=== PATIENT | female | born 1950 | race Caucasian/White ===

== ENCOUNTER 2016-12-26 13:37 | Outpatient (CLI) | payer BC | END 2016-12-26 13:38 | disposition home or self-care (01) | DX: Z12.31 Encounter for screening mammogram for malignant neoplasm of breast (principal) ==

== ENCOUNTER 2017-01-04 09:45 | Outpatient (CLI) | payer BC | END 2017-01-04 09:46 | DX: E03.9 Hypothyroidism, unspecified (principal); Z51.81 Encounter for therapeutic drug level monitoring; E78.5 Hyperlipidemia, unspecified; E55.9 Vitamin D deficiency, unspecified ==

== ENCOUNTER 2017-05-23 13:48 | Outpatient (CLI) | payer BC ==
--- NOTE | 2017-05-23 17:45 | XRAY Report ---
ONE-VIEW PELVIS, ONE-VIEW RIGHT HIP: 05/23/2017 HISTORY: Hip joint pain. FINDINGS: The osseous structures are mildly demineralized. Symmetric degenerative changes are noted about both hips with early axial migration of the femoral he ad relative to the acetabula. Trace subchondral sclerosis is incidental. There is no fracture or focus of destruction. The SI joint spaces are preserved and the sacral ala are intact. There are no changes to suggest avascular necrosis. IMPRESSION: SYMMETRIC DEGENERATIVE CHANGES ABOUT BOTH HIPS. NO ACUTE PROCESS. JOB #: [id number] EXT JOB #:[id number]
== END 2017-05-23 13:49 | disposition home or self-care (01) ==
LOC: DI.S 13:48
PROVIDERS: ATTEND Physician Assistant Medical
DX: M16.0 Bilateral primary osteoarthritis of hip (principal)

== ENCOUNTER 2017-10-14 21:05 | Emergency (ER) | payer MEDICARE, OTHER ==
[2017-10-14 21:31] LABS: BASOPHILS # (AUTO) 0.1 10^3/uL (0.0-0.1); BASOPHILS % (AUTO) 0.8 %; EOSINOPHILS # (AUTO) 0.6 10^3/uL (0.0-0.7); EOSINOPHILS % (AUTO) 6.2 %; HGB - HEMOGLOBIN 14.1 g/dL (12.0-16.0); LYMPHOCYTES # (AUTO) 4.6 10^3/uL (1.5-3.5); LYMPHOCYTES % (AUTO) 49.1 %; MEAN CORPUSCULAR HEMOGLOBIN 28.1 pg (27.0-31.0); MEAN CORPUSCULAR HGB CONC 33.1 g/dL (32.0-36.0); MEAN CORPUSCULAR VOLUME 85.1 fL (81.0-99.0); MEAN PLATELET VOLUME 7.6 fL (7.9-10.8); MONOCYTES # (AUTO) 0.9 10^3/uL (0.0-1.0); MONOCYTES % (AUTO) 9.6 %; NEUTROPHILS # (AUTO) 3.2 10^3/uL (1.5-6.6); NEUTROPHILS % (AUTO) 34.3 %; PLT - PLATELET COUNT 341 10^3/uL (130-450); RED BLOOD COUNT 5.03 10^6/uL (4.20-5.40); WHITE BLOOD COUNT 9.5 x10^3/uL (4.8-10.8)
--- NOTE | 2017-10-14 21:38 | ED Physician Documentation ---
PD HPI CHEST PAIN - Stated complaint Stated Complaint: CHEST PX - Chief complaint Chief Complaint: Cardiac - History obtained from History obtained from: Patient, Family - History of Present Illness Timing - onset: Today Timing - details: Gradual onset, Now resolved Quality: Pressure Similar symptoms before: No diagnosis, Has not had sx before Recently seen: Not recently seen - Additional information Additional information: Patient is a 67 year old female with no significant past medical history who is presenting to the emergency department for high blood pressure and a twinge in her chest. patient states that earlier today she checked her bp and it was about 140/90. patient states later in the afternoon she checked it again and systolic was 190s and patient felt a slight twinge in chest so she decided to come in and get checked out. Patient denies any family history of blood clots or cardiac disease. Review of Systems Constitutional: denies: Fever, Chills Eyes: denies: Decreased vision Ears: denies: Ear pain Nose: reports: Reviewed and negative Throat: reports: Reviewed and negative Cardiac: reports: Chest pain / pressure. 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 - Present Medications Home Medications: Ambulatory Orders Medication Instructions Recorded Confirmed Levothyroxine [Synthroid] 50 mcg PO DAILY 10/14/17 10/14/17 Simvastatin 1 tab PO DAILY 10/14/17 10/14/17 - Allergies Allergies/Adverse Reactions: Allergies Allergy/AdvReac Type Severity Reaction Status Date / Time No Known Drug Allergies Allergy Verified 10/14/17 21:13 - Social History Does the pt smoke?: No Smoking Status: Never smoker Does the pt drink ETOH?: Yes Does the pt have substance abuse?: No PD ED PE NORMAL - Vitals Vital signs reviewed: Yes - General General: Alert and oriented X 3, No acute distress, Well developed/nourished - HEENT HEENT: Atraumatic, PERRL, Pharynx benign - Neck Neck: Supple, no meningeal sign, No JVD - Cardiac Cardiac: RRR, No murmur, No rub - Respiratory Respiratory: No respiratory distress, Clear bilaterally - Abdomen Abdomen: Soft, Non tender, Non distended - Derm Derm: Normal color, Warm and dry, No rash - Extremities Extremities: No deformity, No tenderness to palpate - Neuro Neuro: Alert and oriented X 3, No motor deficit, No sensory deficit, Normal speech Eye Opening: Spontaneous Motor: Obeys Commands Verbal: Oriented GCS Score: 15 Results - Vitals Vitals: Vital Signs - 24 hr 10/14/17 10/14/17 10/14/17 21:08 21:29 22:01 Temperature 36.9 C Heart Rate 101 H 76 85 Respiratory 18 16 16 Rate Blood Pressure 196/93 H 186/78 H 168/79 H O2 Saturation 99 98 98 Oxygen O2 Source Room air - EKG (time done) 2118 Rate: Rate (enter#) (83) Rhythm: NSR [place]: Normal Intervals: Normal MD QRS: Poor R wave progression Ischemia: Normal ST segments Compare to prior EKG: Old EKG unavailable - Labs Labs: Laboratory Tests 10/14/17 10/14/17 10/14/17 21:25 21:25 21:25 WBC 9.5 RBC 5.03 Hgb 14.1 Hct 42.8 MCV 85.1 MCH 28.1 MCHC 33.1 RDW 13.0 Plt Count 341 MPV 7.6 L Neut # 3.2 Lymph # 4.6 H [place] # 0.9 Eos # 0.6 Baso # 0.1 Absolute Nucleated RBC 0.00 Nucleated RBC % 0.0 Sodium 142 Potassium 3.1 L Chloride 103 Carbon Dioxide 27 Anion Gap 12.0 BUN 18 Creatinine 0.9 Estimated GFR (MDRD) 63 L Glucose 127 H Calcium 9.4 Total Bilirubin 0.2 AST 24 ALT 21 Alkaline Phosphatase 82 Troponin I < 0.04 B-Natriuretic Peptide Total Protein 7.8 Albumin 4.6 Globulin 3.2 Albumin/Globulin Ratio 1.4 Lipase 41 10/14/17 21:25 WBC RBC Hgb Hct MCV MCH MCHC RDW Plt Count MPV Neut # Lymph # [place] # Eos # Baso # Absolute Nucleated RBC Nucleated RBC % Sodium Potassium Chloride Carbon Dioxide Anion Gap BUN Creatinine Estimated GFR (MDRD) Glucose Calcium Total Bilirubin AST ALT Alkaline Phosphatase Troponin I B-Natriuretic Peptide 33 Total Protein Albumin Globulin Albumin/Globulin Ratio Lipase - Rads (name of study) chest x-ray Radiology: EMP read indepedently (no acute disease process) PD MEDICAL DECISION MAKING - ED course Complexity details: reviewed old records, reviewed results, re-evaluated patient , considered differential, d/w patient, d/w family ED course: Patient was seen and examined at bedside. ekg was performed and within normal limits. IV access was gained and labs were drawn. chest x-ray was within normal limits. patient's blood pressure was slightly elevated but family stated that they were under a lot of stress lately. Patient's heart score was 2 , and perc score was 0. Patient was appropriate for discharge with outpatient follow up. Departure - Departure Disposition: Home, Self Care Clinical Impression: Hypertension Condition: Good Instructions: ED Hypertension New Begin Tx Follow-Up: Becky Enriquez PA-C [Primary Care Provider] - Within 3 Days Comments: Your diagnostics today were within normal limits. There was no major abnormality on your ekg, exray or blood work. That being said this is only a snapshot in time and you should still follow up with your doctor on monday to schedule and echocardiogram and stress test. Your blood pressure was high today and you should continue to check it twice a day for the next few days and follow up with your doctor on monday for re-evaluation. You may return to the emergency department at any time for new, worsening or uncontrollable symptoms
[2017-10-14 21:46] LABS: ALBUMIN 4.6 g/dL (3.2-5.5); ALBUMIN/GLOBULIN RATIO 1.4 (1.0-2.2); BILIRUBIN,TOTAL 0.2 mg/dL (0.2-1.0); CALCIUM 9.4 mg/dL (8.5-10.3); CREATININE 0.9 mg/dL (0.4-1.0); TOTAL PROTEIN 7.8 g/dL (6.7-8.2)
--- NOTE | 2017-10-14 21:50 | XRAY Report ---
EXAM: CHEST RADIOGRAPHY EXAM DATE: 10/14/2017 09:28 PM. CLINICAL HISTORY: Chest pain. COMPARISON: None. TECHNIQUE: 2 views. FINDINGS: Lungs/Pleura: No focal opacities evident. No pleural effusion. No pneumothorax. Normal volumes. Mediastinum: Heart and mediastinal contours are unremarkable. Other: None. IMPRESSION: No acute intrathoracic plain film abnormality. [facility] Referring Provider Line: [phone] SITE ID: [id number]
[2017-10-14] MEDS ORDERED: POTASSIUM CHLORIDE 20 MEQ TABLET PO STA (21:52)
[2017-10-14 22:02] VITALS: BP 168/79
== END 2017-10-14 22:32 | disposition home or self-care (01) ==
LOC: ED 21:05
DX: I10 Essential (primary) hypertension (principal); E03.9 Hypothyroidism, unspecified
CPT/HCPCS: 36415; 71046; 80053; 83690; 83880; 84484; 85025; 93005; 99283; 99285; A9270

== ENCOUNTER 2017-10-31 09:02 | Outpatient (CLI) | payer MEDICARE, OTHER | END 2017-10-31 09:03 | disposition home or self-care (01) | LOC: DI 09:02 | PROVIDERS: ATTEND Nurse Practitioner Family | DX: R07.89 Other chest pain (principal) | CPT/HCPCS: 93306 ==

== ENCOUNTER 2018-01-05 09:58 | Outpatient (CLI) | payer MEDICARE, OTHER ==
[2018-01-05 18:36] LABS: THYROID STIMULATING HORMONE 0.85 uIU/mL (0.34-5.60)
[2018-01-05 18:38] LABS: FREE T4 (FREE THYROXINE) 0.8 ng/dL (0.58-1.64)
== END 2018-01-05 09:59 | disposition home or self-care (01) ==
LOC: LAB.F 09:58
PROVIDERS: ATTEND Nurse Practitioner Family
DX: E03.9 Hypothyroidism, unspecified (principal)
CPT/HCPCS: 36415; 84439; 84443

== ENCOUNTER 2018-01-17 10:31 | Outpatient (CLI) | payer MEDICARE, OTHER ==
--- NOTE | 2018-01-18 12:52 | Mammography Report ---
DIGITAL SCREENING MAMMOGRAM: 01/17/2018 CLINICAL INDICATION: A 67-year-old with history of late childbearing for screening. COMPARISON: 12/2016, 12/2015, 02/2015, 01/2014, 01/2013, 01/2012, 12/2010, 10/2009. TECHNIQUE: Routine CC and MLO projections were obtained of the breasts. FINDINGS: The breasts again demonstrate heterogeneously dense fibroglandular parenchyma bilaterally. Coarse and punctate, typically benign calcifications are present. No suspicious masses, clustered microcalcifications, or regions of architectural distortion are identified. IMPRESSION: BENIGN FINDINGS. RECOMMENDATION: Routine annual screening unless otherwise clinically indicated. BIRADS CATEGORY 2 - BENIGN FINDINGS. STANDARD QUALIFYING STATEMENTS: 1. This examination was reviewed with the aid of Computer-Aided Detection (CAD). 2. A negative or benign imaging report should not delay biopsy if clinically suspicious findings are present. Consider surgical consultation if warranted. More than 5% of cancers are not identified by imaging. 3. Dense breasts may obscure an underlying neoplasm. TD: 01/18/2018 12:51
== END 2018-01-17 10:32 | disposition home or self-care (01) ==
LOC: DI 10:31
PROVIDERS: ATTEND Nurse Practitioner Family
DX: Z12.31 Encounter for screening mammogram for malignant neoplasm of breast (principal)
CPT/HCPCS: 77067

== ENCOUNTER 2018-11-07 09:23 | Outpatient (CLI) | payer MEDICARE, OTHER ==
[2018-11-07 17:45] LABS: BASOPHILS % (AUTO) 0.4 %; EOSINOPHILS # (AUTO) 0.4 10^3/uL (0.0-0.7); EOSINOPHILS % (AUTO) 5.4 %; LYMPHOCYTES # (AUTO) 2.6 10^3/uL (1.5-3.5); LYMPHOCYTES % (AUTO) 38.8 %; MEAN CORPUSCULAR HEMOGLOBIN 28.8 pg (27.0-31.0); MEAN CORPUSCULAR HGB CONC 32.4 g/dL (32.0-36.0); MEAN CORPUSCULAR VOLUME 88.7 fL (81.0-99.0); MEAN PLATELET VOLUME 9.2 fL (7.9-10.8); MONOCYTES # (AUTO) 0.6 10^3/uL (0.0-1.0); MONOCYTES % (AUTO) 8.4 %; NEUTROPHILS # (AUTO) 3.1 10^3/uL (1.5-6.6); PLT - PLATELET COUNT 322 10^3/uL (130-450); RED BLOOD COUNT 4.88 10^6/uL (4.20-5.40); RED CELL DISTRIBUTION WIDTH 13.7 % (12.0-15.0); WHITE BLOOD COUNT 6.6 x10^3/uL (4.8-10.8)
[2018-11-07 18:15] LABS: ALBUMIN 4.7 g/dL (3.2-5.5); ALBUMIN/GLOBULIN RATIO 1.5 (1.0-2.2); ALKALINE PHOSPHATASE 83 IU/L (42-121); ALT ALANINE AMINOTRANSFERASE 18 IU/L (10-60); AST ASPARTATE AMINOTRANSFERASE 24 IU/L (10-42); BILIRUBIN,TOTAL 0.7 mg/dL (0.2-1.0); BUN - BLOOD UREA NITROGEN 15 mg/dL (6-20); CALCIUM 9.3 mg/dL (8.5-10.3); CARBON DIOXIDE - CO2 27 mmol/L (21-32); CHLORIDE 98 mmol/L (101-111); CHOLESTEROL 172 mg/dL; CREATININE 0.8 mg/dL (0.4-1.0); GFR - MDRD 72 (>89); GLUCOSE 89 mg/dL (70-100); HDL CHOLESTEROL 58 mg/dL; LDL CHOLESTEROL,CALCULATED 94 mg/dL; LDL/HDL RATIO 1.6 (<4.4); SODIUM 137 mmol/L (135-145); TOTAL PROTEIN 7.9 g/dL (6.7-8.2); VLDL CHOLESTEROL 20 mg/dL
== END 2018-11-07 09:24 | disposition home or self-care (01) ==
LOC: LAB.F 09:23
PROVIDERS: ATTEND Nurse Practitioner Family
DX: I10 Essential (primary) hypertension (principal); E03.9 Hypothyroidism, unspecified
CPT/HCPCS: 36415; 80053; 80061; 83721; 84443; 85025

== ENCOUNTER 2019-01-15 08:11 | Emergency (ER) | payer MEDICARE, OTHER ==
--- NOTE | 2019-01-15 08:29 | ED Physician Documentation ---
PD HPI ABD PAIN - Stated complaint Stated Complaint: ABD PX/FEVER - History obtained from History obtained from: Patient - History of Present Illness Timing - onset: Yesterday (last evening) Timing - duration: Hours (15) Timing - details: Gradual onset, Still present, Now resolved (increased into today) Quality: Cramping, Aching, Pain Location: Suprapubic, LLQ Radiation: Lower back. No: Left flank Improved by: No: Eating, Laying still Worsened by: Moving, Palpation. No: Eating Associated symptoms: Nausea. No: Fever, Vomiting, Diarrhea, Constipation, Dysuria Similar symptoms before: Has not had sx before Recently seen: Not recently seen Review of Systems Constitutional: denies: Fever, Chills, Myalgias Nose: denies: Rhinorrhea / runny nose, Congestion Throat: denies: Sore throat Cardiac: denies: Chest pain / pressure Respiratory: denies: Cough GI: reports: Abdominal Pain, Nausea. 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 - Present Medications Home Medications: Ambulatory Orders Medication Instructions Recorded Confirmed Levothyroxine [Synthroid] 20 mcg PO DAILY 10/14/17 01/15/19 Simvastatin 1 tab PO DAILY 10/14/17 01/15/19 Hydrocodone/Acetaminophen [Amalia 1 each PO Q6H PRN #15 tablet 01/15/19 5-325 Tablet] Lisinopril [Zestril] 7.5 mg PO DAILY 01/15/19 01/15/19 Metronidazole [Flagyl] 500 mg PO BID #20 tablet 01/15/19 Ondansetron Odt [Zofran] 4 mg TL Q6H PRN #15 tablet 01/15/19 Sulfamethox/Trimeth 800/160 1 each PO BID #20 tablet 01/15/19 [Bactrim Ds 800/160] - Allergies Allergies/Adverse Reactions: Allergies Allergy/AdvReac Type Severity Reaction Status Date / Time No Known Drug Allergies Allergy Verified 01/15/19 08:31 - Social History Does the pt smoke?: No Smoking Status: Never smoker Does the pt drink ETOH?: Yes Does the pt have substance abuse?: No PD ED PE NORMAL - Vitals Vital signs reviewed: Yes - General General: Alert and oriented X 3, Well developed/nourished, Other (appears uncomfortable, with pain lower left abd. ) - HEENT HEENT: Pharynx benign - Neck Neck: Supple, no meningeal sign, No adenopathy - Cardiac Cardiac: No murmur. No: RRR (regular but tachycardic) - Respiratory Respiratory: Clear bilaterally - Abdomen Abdomen: Soft, Non distended - Female Female : Deferred - Rectal Rectal: Deferred - Back Back: No CVA TTP - Derm Derm: Normal color, Warm and dry - Extremities Extremities: Normal ROM s pain, No edema, No calf tenderness / cord - Neuro Neuro: Alert and oriented X 3, No motor deficit, Normal speech Results - Vitals Vitals: Vital Signs - 24 hr 01/15/19 01/15/19 01/15/19 11:49 12:27 12:43 Temperature 36.8 C Heart Rate 92 91 98 Respiratory 18 19 20 Rate Blood Pressure 131/67 H 130/71 121/77 O2 Saturation 100 100 100 Oxygen O2 Source Room air - Labs Labs: Laboratory Tests 01/15/19 01/15/19 01/15/19 09:05 09:05 09:05 WBC 15.1 H RBC 4.76 Hgb 13.6 Hct 40.6 MCV 85.4 MCH 28.7 MCHC 33.6 RDW 13.4 Plt Count 268 MPV 8.6 Neut # (Auto) 11.2 H Lymph # (Auto) 2.4 [place] # (Auto) 1.3 H Eos # (Auto) 0.1 Baso # (Auto) 0.1 Absolute Nucleated RBC 0.00 Nucleated RBC % 0.0 Sodium 138 Potassium 4.1 Chloride 102 Carbon Dioxide 25 Anion Gap 11.0 BUN 10 Creatinine 0.8 Estimated GFR (MDRD) 72 L Glucose 112 H Calcium 9.1 Total Bilirubin 1.0 AST 27 ALT 15 Alkaline Phosphatase 92 Total Protein 7.9 Albumin 4.5 Globulin 3.4 Albumin/Globulin Ratio 1.3 Lipase 30 Urine Color YELLOW Urine Clarity CLEAR Urine pH 5.5 Ur Specific [place] <=1.005 Urine Protein NEGATIVE Urine Glucose (UA) NEGATIVE Urine Ketones NEGATIVE Urine Occult Blood SMALL H Urine Nitrite NEGATIVE Urine Bilirubin NEGATIVE Urine Urobilinogen 0.2 (NORMAL) Ur Leukocyte Esterase NEGATIVE Urine RBC 0-5 Urine WBC 0-3 Ur Squamous Epith Cells RARE Squamous Urine Bacteria Rare Ur Microscopic Review INDICATED Urine Culture Comments NOT INDICATED - Rads (name of study) abd?pelvic CT Radiology: Prelim report reviewed (acute uncomplicated diverticulitis), EMP read contemporaneously, See rad report PD MEDICAL DECISION MAKING - ED course Complexity details: reviewed results, re-evaluated patient (She is improved with IV fluids and medicines here. She is churn tender in the left lower quadrant. She is able to drink sips of water. We discussed treatment regimen of anti- inflammatories, antibiotics, pain medicine and antiemetics. She asks about treatment at home versus in the hospital. I offered to call the hospitalist about staying overnight. Her preference is to go home and she has uncomplicated diverticulitis by exam and improvement in her symptoms reasonably well with medicines here. She is given initial IV antibiotics. Shared decision is for her to try home treatment with cautions to return if worsening and to return or recheck if not well improved in the next couple of days.), considered differential, d/w patient Departure - Departure Disposition: Home, Self Care Clinical Impression: Acute diverticulitis Condition: Stable Record reviewed to determine appropriate education?: Yes Instructions: ED Diverticulitis Follow-Up: Cindy Koehler ARNP [Primary Care Provider] - Prescriptions: Hydrocodone/Acetaminophen [Amalia 5-325 Tablet] 1 each PO Q6H PRN #15 tablet PRN Reason: Pain Metronidazole [Flagyl] 500 mg PO BID #20 tablet Ondansetron Odt [Zofran] 4 mg TL Q6H PRN #15 tablet PRN Reason: Nausea / Vomiting Sulfamethox/Trimeth 800/160 [Bactrim Ds 800/160] 1 each PO BID #20 tablet Comments: Stay well-hydrated today. Simple foods. Use the antibiotics Bactrim and Flagyl twice daily for 10 days. You can use an anti-inflammatory such as Aleve twice daily as well. Add ondansetron if needed for nausea and Tylenol or hydrocodone if needed for pain. Recheck if not improved well over the next 2-3 days. Light activity today and progress as able. Discharge Date/Time: 01/15/19 12:43
[2019-01-15] MEDS ORDERED: ONDANSETRON 4 MG/2 ML VIAL IVP STA (08:46)
[2019-01-15] MEDS ORDERED: MORPHINE 10 MG/ML VIAL IVP STA (08:46)
[2019-01-15] MEDS ORDERED: SODIUM CHLORIDE 0.9% 1,000 ML IV ONE (08:46)
[2019-01-15] MEDS ORDERED: IOVERSOL 320 100 ML VIAL IVP ONE ×2 (09:02→11:18)
[2019-01-15 09:17] LABS: BASOPHILS # (AUTO) 0.1 10^3/uL (0.0-0.1); BASOPHILS % (AUTO) 0.8 %; EOSINOPHILS # (AUTO) 0.1 10^3/uL (0.0-0.7); EOSINOPHILS % (AUTO) 0.5 %; HGB - HEMOGLOBIN 13.6 g/dL (12.0-16.0); LYMPHOCYTES # (AUTO) 2.4 10^3/uL (1.5-3.5); LYMPHOCYTES % (AUTO) 15.9 %; MEAN CORPUSCULAR HEMOGLOBIN 28.7 pg (27.0-31.0); MEAN CORPUSCULAR HGB CONC 33.6 g/dL (32.0-36.0); MEAN CORPUSCULAR VOLUME 85.4 fL (81.0-99.0); MEAN PLATELET VOLUME 8.6 fL (7.9-10.8); MONOCYTES # (AUTO) 1.3 10^3/uL (0.0-1.0); MONOCYTES % (AUTO) 8.6 %; NEUTROPHILS # (AUTO) 11.2 10^3/uL (1.5-6.6); NEUTROPHILS % (AUTO) 74.2 %; PLT - PLATELET COUNT 268 10^3/uL (130-450); RED BLOOD COUNT 4.76 10^6/uL (4.20-5.40); RED CELL DISTRIBUTION WIDTH 13.4 % (12.0-15.0); WHITE BLOOD COUNT 15.1 x10^3/uL (4.8-10.8)
[2019-01-15 09:19] LABS: BILIRUBIN,URINE NEGATIVE (NEGATIVE); GLUCOSE, URINE (UA) NEGATIVE (NEGATIVE); KETONES,URINE (UA) NEGATIVE (NEGATIVE); LEUKOCYTE ESTERASE, URINE NEGATIVE (NEGATIVE); NITRITE,URINE NEGATIVE (NEGATIVE); OCCULT BLOOD,URINE SMALL (NEGATIVE); PH,URINE 5.5 PH (5.0-7.5); PROTEIN,URINE NEGATIVE (NEGATIVE); UROBILINOGEN,URINE 0.2 (NORMAL) E.U./dL (NORMAL)
[2019-01-15 09:20] LABS: CLARITY,URINE CLEAR (CLEAR)
[2019-01-15 09:30] LABS: ALBUMIN 4.5 g/dL (3.2-5.5); ALBUMIN/GLOBULIN RATIO 1.3 (1.0-2.2); BACTERIA,URINE Rare /HPF (None Seen); CALCIUM 9.1 mg/dL (8.5-10.3); CREATININE 0.8 mg/dL (0.4-1.0); RBC,URINE 0-5 /HPF (0-5); SQUAMOUS EPITHELIAL CELL,UR RARE Squamous (<= Few); TOTAL PROTEIN 7.9 g/dL (6.7-8.2)
[2019-01-15] MEDS ORDERED: cefTRIAXone 1 GM VIAL IVP STA (10:33)
[2019-01-15] MEDS ORDERED: metroNIDAZOLE 500 MG/100 ML 500 MG/100 ML BAG IV ONE (10:33)
--- NOTE | 2019-01-15 10:42 | CT Report ---
Reason: lower abd pain since yesterday Procedure Date: 01/15/2019 Accession Number: [id number] / [id number] Procedure: CT - Abdomen/Pelvis W CPT Code: FULL RESULT: EXAM: CT ABDOMEN AND PELVIS EXAM DATE: 01/15/2019 10:25 AM. CLINICAL HISTORY: Lower abdominal pain since yesterday. COMPARISONS: None. TECHNIQUE: Routine helical CT imaging was performed through the abdomen and pelvis. IV contrast: Isovue 300 100 mL. Enteric contrast: No. Reconstructions: Coronal and sagittal. In accordance with CT protocol optimization, one or more of the following dose reduction techniques were utilized for this exam: automated exposure control, adjustment of mA and/or KV based on patient size, or use of iterative reconstructive technique. FINDINGS: Lung Bases: Unremarkable. Liver: A hypodense segment 3/4b lesion anteriorly measures 1.6 cm and is not characterized. Gallbladder/Bile Ducts: Unremarkable. Spleen: Normal. Pancreas: Normal. Adrenal Glands: Normal. Kidneys: Normal. No masses or hydronephrosis. Peritoneal Cavity/Bowel: No bowel obstruction. No free air. No mass or lymphadenopathy is detected. The appendix is well visualized and normal. Pelvic Organs: Bladder is markedly distended with no other abnormal features detected. A small amount of free fluid is seen within the pelvis. There is diverticulosis within the sigmoid colon which is surrounded by fat stranding and there is focal bowel wall thickening, uncomplicated diverticulitis. Vasculature: Atherosclerotic disease without aneurysm. Bones: No significant abnormality. Other: None. IMPRESSION: Uncomplicated diverticulitis. [facility] The call report notification system was initiated by Dr. Rashad Mairo at 10:41 AM on 01/15/2019. The above call report findings were discussed with Donald Hamilton by Dr. Rashad Mario at 10:48 AM on 01/15/2019.
[2019-01-15] MEDS ORDERED: KETOROLAC 30 MG/ML VIAL IVP STA (12:18)
[2019-01-15 12:44] VITALS: BP 121/77
== END 2019-01-15 12:43 | disposition home or self-care (01) ==
LOC: ED 08:11
DX: K57.92 Diverticulitis of intestine, part unspecified, without perforation or abscess without bleeding (principal); I10 Essential (primary) hypertension; E03.9 Hypothyroidism, unspecified
CPT/HCPCS: 36415; 74177; 80053; 81001; 83690; 85025; 96361; 96365; 96375; 99284; Q9967; 81003; 87086

== ENCOUNTER 2019-01-24 15:47 | Outpatient (CLI) | payer MEDICARE, OTHER ==
--- NOTE | 2019-01-24 16:41 | Mammography Report ---
Reason: SCREENING MAMMO Procedure Date: 01/24/2019 Accession Number: [id number] / [id number] Procedure: VENKATESH - Screening Mammo w/Rafael CPT Code: FULL RESULT: EXAM: Screening Mammo w/Rafael DATE: 01/24/2019 3:49 PM CLINICAL HISTORY: Screening examination. TECHNIQUE: (B) - Bilateral CC and MLO views were obtained. COMPARISON: 01/17/2018, 12/26/2016 PARENCHYMAL PATTERN: (A) - The breasts demonstrate scattered fibroglandular densities bilaterally. FINDINGS: There are no suspicious masses, calcifications, or areas of distortion. IMPRESSION: Negative examination. BI-RADS category 1. RECOMMENDATION: (ANNUAL) - Recommend routine annual screening mammography. BI-RADS CATEGORY: (1) - Negative. STANDARD QUALIFYING STATEMENTS: 1. This examination was not reviewed with the aid of Computer-Aided Detection (CAD). 2. A negative or benign imaging report should not preclude biopsy if clinically suspicious findings are present. 3. Dense breasts may obscure an underlying neoplasm. 4. This examination was reviewed with the aid of 3D breast imaging (tomosynthesis).
== END 2019-01-24 15:48 | disposition home or self-care (01) ==
LOC: DI 15:47
DX: Z12.31 Encounter for screening mammogram for malignant neoplasm of breast (principal)
CPT/HCPCS: 77063; 77067

== ENCOUNTER 2019-02-04 07:34 | Outpatient (CLI) | payer MEDICARE, OTHER | END 2019-02-04 07:35 | disposition home or self-care (01) | LOC: LAB.F 07:34 | PROVIDERS: ATTEND Nurse Practitioner Family | DX: E03.9 Hypothyroidism, unspecified (principal) | CPT/HCPCS: 36415; 84443 ==

== ENCOUNTER 2020-03-30 10:31 | Outpatient (CLI) | payer MEDICARE, OTHER ==
--- NOTE | 2020-03-31 11:34 | Mammography Report ---
BILATERAL DIGITAL SCREENING MAMMOGRAM 3D/2D: 03/30/2020 CLINICAL: Routine screening. Comparison is made to exams dated: 01/24/2019 mammogram, 12/26/2016 mammogram, 12/21/2015 mammogram, an d 12/21/2015 ultrasound - [facility]. The tissue of both breasts is heterogeneously dense. This may lower the sensitivity of mammography. There are benign calcifications in both breasts. No significant masses, calcifications, or other findings are seen in either breast. There has been no significant interval change. IMPRESSION: There is no mammographic evidence of malignancy. A 1 year screening mammogram is recommended. This exam was interpreted at Station ID: [id number]. NOTE: For mammograms, a report in lay terms will be sent to the patient. Approximately 15% of breast malignancies will not be visualized mammographically. In the management of a palpable breast mass, a negative mammogram must not discourage biopsy of a clinically suspicious lesion. Electronically Signed By: Gregory ferguson/marisol:03/30/2020 15:03:03 ACR BI-RADS Category 2: Benign Finding(s) 3342F PARENCHYMAL PATTERN: (D) - The breast(s) demonstrate(s) heterogeneously dense fibroglandular parcesary ma. BI-RADS CATEGORY: (2) - 2 RECOMMENDATION: (ANNUAL) - Recommend routine annual screening mammography. [id number] 1 year screening LATERALITY: (B)
== END 2020-03-30 10:32 | disposition home or self-care (01) ==
LOC: DI 10:31
DX: Z12.31 Encounter for screening mammogram for malignant neoplasm of breast (principal)
CPT/HCPCS: 77063; 77067

== ENCOUNTER 2021-05-05 11:13 | Outpatient (CLI) | payer MEDICARE, OTHER ==
--- NOTE | 2021-05-07 10:51 | Mammography Report ---
BILATERAL DIGITAL SCREENING MAMMOGRAM 3D/2D WITH EXAGGERATED CC: 05/05/2021 CLINICAL: Routine screening. Comparison is made to exams dated: 03/30/2020 mammogram, 01/24/2019 mammogram, and 12/26/2016 mammogram - [facility]. The tissue of both breasts is extremely dense, which lowers the sen sitivity of mammography. There is an oval equal density focal asymmetry with an indistinct and circumscribed margin in the rig ht breast at 7 o'clock posterior depth. No other significant masses, calcifications, or other findings are seen in either breast. IMPRESSION: INCOMPLETE: NEEDS ADDITIONAL IMAGING EVALUATION The oval equal density focal asymmetry in the right breast is indeterminate. Mediolateral and spot c ompression views as well as additional views with possible ultrasound are recommended. This exam was interpreted at Station ID: [id number]. NOTE: For mammograms, a report in lay terms will be sent to the patient. Approximately 15% of breast malignancies will not be visualized mammographically. In the management of a palpable breast mass, a negative mammogram must not discourage biopsy of a clinically suspicious lesion. Electronically Signed By: Richar Martinez M.D. ddp/penrad:05/05/2021 13:23:59 ACR BI-RADS Category 0: Incomplete 3340F PARENCHYMAL PATTERN: (VD) - The breast(s) demonstrate(s) extremely dense parenchyma, limiting the sen sitivity of mammography. BI-RADS CATEGORY: (0) - 0 Mammo and [place] [id number] Immediate follow-up LATERALITY: (B)
== END 2021-05-05 11:14 | disposition home or self-care (01) ==
LOC: DI.S 11:13
DX: Z12.31 Encounter for screening mammogram for malignant neoplasm of breast (principal); R92.8 Other abnormal and inconclusive findings on diagnostic imaging of breast

== ENCOUNTER 2021-06-04 07:38 | Outpatient (CLI) | payer MEDICARE, OTHER ==
--- NOTE | 2021-06-07 15:43 | Ultrasound Report ---
LIMITED ULTRASOUND OF RIGHT BREAST AND AXILLA: 06/04/2021 CLINICAL: Patient returns today to evaluate a focal asymmetry in the right breast. Comparison is made to exams dated: 06/04/2021 mammogram, 05/05/2021 mammogram, 03/30/2020 mammogram, mammogram, 01/17/2018 mammogram, and 12/26/2016 mammogram - [facility]. Color flow and real-time ultrasound of the right breast 7 o'clock, and axilla regions were performed. Dolan scale images of the real-time examination were reviewed. There is a 0.6 cm x 0.5 cm x 0.5 cm irregular mass in the right breast at 7 o'clock posterior depth 7 cm from the nipple. This irregular mass is hypoechoic. This correlates with mammography findings. No significant abnormalities were seen sonographically in the right axilla. IMPRESSION: SUSPICIOUS OF MALIGNANCY The 0.6 cm x 0.5 cm x 0.5 cm irregular mass in the right breast is suspicious of malignancy. An ultr asound guided biopsy is recommended. Findings and recommendations were discussed with the patient during today's examination by Dr. Colby This exam was interpreted at Station ID: [id number]. Electronically Signed By: Rob Nayak M.D. aty/:06/04/2021 11:32:53 Ultrasound BI-RADS: 4 Suspicious for malignancy BI-RADS CATEGORY: (4) - 4 None [id number] Immediate follow-up LATERALITY: ()
--- NOTE | 2021-06-07 15:43 | Mammography Report ---
UNILATERAL RIGHT DIGITAL DIAGNOSTIC MAMMOGRAM 3D/2D: 06/04/2021 CLINICAL: Patient returns today to evaluate a focal asymmetry in the right breast. Comparison is made to exams dated: 05/05/2021 mammogram, 03/30/2020 mammogram, 01/24/2019 mammogram, 08/2018 mammogram, 12/26/2016 mammogram, and 12/21/2015 ultrasound - [facility]. The tissue of right breast is extremely dense, which lowers the sensitivity of mammography. There is a 0.6 cm oval equal density mass with a circumscribed margin in the right breast at 7 o'cloc k posterior depth. This is seen in additional views. No other significant masses or calcifications are seen in the breast. IMPRESSION: INCOMPLETE: NEEDS ADDITIONAL IMAGING EVALUATION The 0.6 cm oval equal density mass in the right breast resembles a cyst or a lymph node and is indete rminate. An ultrasound is recommended for further evaluation and is scheduled to immediately follow this exami nation. This exam was interpreted at Station ID: [id number]. NOTE: For mammograms, a report in lay terms will be sent to the patient. Approximately 15% of breast malignancies will not be visualized mammographically. In the management of a palpable breast mass, a negative mammogram must not discourage biopsy of a clinically suspicious lesion. Electronically Signed By: Rob Nayak M.D. aty/:06/04/2021 08:35:53 ACR BI-RADS Category 0: Incomplete 3340F PARENCHYMAL PATTERN: (VD) - The breast(s) demonstrate(s) extremely dense parenchyma, limiting the sen sitivity of mammography. BI-RADS CATEGORY: (0) - 0 Ultrasound [id number] Immediate follow-up LATERALITY: (R)
== END 2021-06-04 07:39 | disposition home or self-care (01) ==
LOC: DI 07:38
PROVIDERS: ATTEND Family Medicine
DX: N63.13 Unspecified lump in the right breast, lower outer quadrant (principal)

== ENCOUNTER 2021-06-15 13:01 | Outpatient (CLI) | payer MEDICARE, OTHER ==
[2021-06-15] MEDS ORDERED: LIDOCAINE MPF 1%-EPI 1:200000 30 ML VIAL ONE (13:26)
[2021-06-15] MEDS ORDERED: BUFFERED LIDOCAINE 10 ML SYRINGE ONE (13:26)
[2021-06-15] MEDS ORDERED: BUFFERED LIDOCAINE 10 ML SYRINGE IU ONE (15:13)
[2021-06-15] MEDS ORDERED: LIDOCAINE MPF 1%-EPI 1:200000 30 ML VIAL SUBQ ONE (16:00)
--- NOTE | 2021-06-16 07:11 | Mammography Report ---
UNILATERAL RIGHT DIGITAL DIAGNOSTIC MAMMOGRAM 3D/2D: 06/15/2021 CLINICAL: Post right breast ultrasound biopsy, clip placment imaging. Comparison is made to exams dated: 06/04/2021 ultrasound, 06/04/2021 mammogram, 05/05/2021 mammogram, mammogram, 01/24/2019 mammogram, and 01/17/2018 mammogram - [facility]. The tissue of right breast is heterogeneously dense. This may lower the sensitivity of mammography. There is a marker clip in the appropriate position in the right breast at 7 o'clock posterior depth. This marker clip placement is at the biopsy site. IMPRESSION: POST PROCEDURE MAMMOGRAM FOR MARKER PLACEMENT There was a successful marker clip placement in the right breast posterior depth. This exam was interpreted at Station ID: [id number]. NOTE: For mammograms, a report in lay terms will be sent to the patient. Approximately 15% of breast malignancies will not be visualized mammographically. In the management of a palpable breast mass, a negative mammogram must not discourage biopsy of a clinically suspicious lesion. Electronically Signed By: Richar Martinez M.D. [email or web address]/[email or web address]:06/16/2021 02:38:03 ACR BI-RADS Category Post-procedure mammogram for marker placement PARENCHYMAL PATTERN: (D) - The breast(s) demonstrate(s) heterogeneously dense fibroglandular parcesary ma. BI-RADS CATEGORY: () - Unspecified - other recall n/a LATERALITY: (B)
--- NOTE | 2021-06-21 07:40 | Ultrasound Report ---
ULTRASOUND GUIDED BIOPSY RIGHT BREAST USING VACUUM DEVICE WITH MARKING DEVICE INSERTED AND POST DIGIT AL MAMMOGRAPHIC IMAGIN06/15/2021 CLINICAL: Right breast mass. PATIENT CONSENT: Risks (minor bleeding, infection, vasovagal reaction and repeat procedure), benefits and alternatives were explained to the patient and written informed consent was obtained. Correlation is made to exams dated: 06/15/2021 mammogram, 06/04/2021 ultrasound, 06/04/2021 mammogram, mammogram, 03/30/2020 mammogram, and 01/24/2019 mammogram - [facility]. An ultrasound guided biopsy using real-time ultrasound was performed for the concerning 0.6 cm x 0.5 cm x 0.4 cm indistinct oval mass located in the right breast at 7 o'clock posterior depth. This was described on the previous mammography and ultrasound reports. The skin was prepped in the usual [facility] er. Local anesthetic was administered to the access site. A small incision was made in the breast. The abnormality was approached from the lateral aspect. A 13 gauge biopsy needle was placed adjacen t to the abnormality under ultrasound guidance. Once the needle was documented to be in the correct location, two specimens were obtained using the Mammotome biopsy system. A Hydromark clip was insert ed into the biopsy cavity. A skin closure strip and a sterile dressing were applied to the access si te. Post procedure digital mammographic imaging demonstrates the location device at the targeted are a and partial removal of the abnormality. The specimens were sent to the laboratory for pathological analysis. IMPRESSION: ULTRASOUND GUIDED BIOPSY BENIGN Ultrasound guided biopsy of the 0.6 cm x 0.5 cm x 0.4 cm mass in the right breast at 7 o'clock ar manager ior depth was successful. Pathology indicates benign fibrocystic changes with apocrine metaplasia an d stromal fibrosis. Pathology results are concordant with imaging findings. A follow-up right mammogram and right ultrasound in 6 months is recommended to demonstrate stability . This exam was interpreted at Station ID: [id number]. Richar nicolas,aty/:06/18/2021 15:33:20 BI-RADS CATEGORY: () - Mammo and [place] [id number] 6 month follow-up LATERALITY: (R)
== END 2021-06-15 13:02 | disposition home or self-care (01) ==
LOC: DI 13:01
PROVIDERS: ATTEND Family Medicine
DX: N60.11 Diffuse cystic mastopathy of right breast (principal)
CPT/HCPCS: 19083

== ENCOUNTER 2021-10-30 08:00 | Outpatient (CLI) | payer MEDICARE, OTHER | END 2021-10-30 23:59 | disposition home or self-care (01) | LOC: LAB.S 08:00 | PROVIDERS: ATTEND Physician Assistant Medical | DX: U07.1 COVID-19 (principal) ==